=== PATIENT | male | born 1950 | race Caucasian/White ===

== ENCOUNTER → 2016-10-14 | Outpatient (CLI) | payer BC ==
[~2016-10-14] MED LIST: ACET-749 PO; CYCL10TA6 PO; IBUP-103 PO; PANT20TA PO; ZNTT/150 PO
== END | disposition home or self-care (01) ==
LOC: C.LABSPEC 16:51
PROVIDERS: ATTEND Internal Medicine Pulmonary Disease
DX: D86.9 Sarcoidosis, unspecified (principal)

== ENCOUNTER → 2016-11-21 | Outpatient (CLI) | payer BC ==
[~2016-11-21] MED LIST changes: +NRN/300 PO; -PANT20TA PO; +PANT20TA2 PO
--- NOTE | 2016-11-21 12:38 | DIAGNOSTIC IMAGING REPORT ---
KUB CLINICAL HISTORY: Nephrolithiasis. FINDINGS: 2 AP supine abdominal radiographs are compared to study dated 05/17/2015 and correlated with abdominal CT dated 11/08/2014. There is a nonobstructed abdominal bowel gas pattern noting moderate colonic fecal retention. There is no radiographic evidence of nephrolithiasis. The skeletal structures are osteopenic. There is lumbosacral spondylosis and scoliosis. The bony pelvis appears intact. IMPRESSION: There is no radiographic evidence of nephrolithiasis. Electronically signed by: Jesus Mccoy M.D. 11/21/2016 12:37 PM Dictated Date/Time: 11/21/2016 12:36 PM
== END | disposition home or self-care (01) ==
LOC: C.RAD 11:21
PROVIDERS: ATTEND Urology
DX: N20.0 Calculus of kidney (principal)

== ENCOUNTER → 2017-04-23 | Outpatient (CLI) | payer BC ==
[~2017-04-23] MED LIST changes: -ACET-749 PO; -NRN/300 PO; +PANT20TA PO; -PANT20TA2 PO; -ZNTT/150 PO
[2017-04-23 09:42] LABS: BASO % 0.9 %; BASO ABS # 0.04 K/uL (0-0.2); COMPLETE YES; EOS % 8.5 %; HEMATOCRIT 45.8 % (42-52); LYMPH % 22.8 %; LYMPH ABS # 0.99 K/uL (1.2-3.4); MEAN CELL VOLUME 92.7 fL (80-100); MEAN CORPUSCULAR HEMOGLOBIN 31.2 pg (25-34); MEAN CORPUSCULAR HGB CONC 33.6 g/dl (32-36); MONO % 10.3 %; NEUT % 57.5 %; PLATELET COUNT 184 K/uL (130-400); RED BLOOD COUNT 4.94 M/uL (4.7-6.1); WHITE BLOOD COUNT 4.35 K/uL (4.8-10.8)
[2017-04-23 10:17] LABS: ALT/SGPT 27 U/L (12-78); AST/SGOT 19 U/L (15-37); BLOOD UREA NITROGEN 19 mg/dl (7-18); BUN/CREATININE RATIO 19.2 (10-20); CALCIUM 8.5 mg/dl (8.5-10.1); CARBON DIOXIDE 30 mmol/L (21-32); CHLORIDE 105 mmol/L (98-107); GLUCOSE 94 mg/dl (70-99); POTASSIUM 4.2 mmol/L (3.5-5.1); SODIUM 139 mmol/L (136-145)
[2017-04-23 10:22] LABS: ALB/GLOB RATIO 1.2 (0.9-2); ALKALINE PHOSPHATASE 92 U/L (45-117); CHOLESTEROL 170 mg/dl (0-200); CHOLESTEROL/HDL RATIO 4.7; HDL CHOLESTEROL 36 mg/dl; LDL CHOLESTEROL CALCULATED 116 mg/dl; PROSTATE SPECIFIC ANTIGEN 0.823 ng/ml (0.000-4.000); TRIGLYCERIDES 89 mg/dl (0-150); VERY LOW DENSITY LIPOPROT CALC 18 mg/dl
--- NOTE | 2017-05-02 12:13 | CODING QUERY MEDICAL NECESSITY ---
CQSUPPORTING DIAGNOSIS NEEDED A supporting diagnosis is required for the test/procedure performed on this patient in order for us to be reimbursed by the patient's insurance. Please provide a supporting diagnosis for the following test/procedure listed below next to the test name along with your signature. *If there is no additional diagnosis for this patient that would support the following test/procedure please document that below next to the test/procedure. Test(s)/Procedure(s) that require a supporting diagnosis: DOS 04/23/17 PROSTATE SPECIFIC (PSA) TEST Provider Signature: Date: Thank you Judy Diaz Health Information Management Once completed, please kindly fax back to [phone] For questions please call [phone]
== END | disposition home or self-care (01) ==
LOC: C.LAB1850 08:19
PROVIDERS: ATTEND Internal Medicine Pulmonary Disease
DX: Z00.00 Encounter for general adult medical examination without abnormal findings (principal); M51.36 Other intervertebral disc degeneration, lumbar region; N20.0 Calculus of kidney; K21.9 Gastro-esophageal reflux disease without esophagitis

== ENCOUNTER → 2017-07-29 | Outpatient (CLI) | payer BC ==
[~2017-07-29] MED LIST changes: -CYCL10TA6 PO; +NRN/300 PO; -PANT20TA PO; +PANT20TA2 PO
--- NOTE | 2017-07-29 10:37 | DIAGNOSTIC IMAGING REPORT ---
L HIP UNILATERAL 2 VIEWS HISTORY: 66 years-old Male HIP chronic left hip pain COMPARISON: CT abdomen and pelvis 11/08/2014 TECHNIQUE: AP and frog-leg views of the left hip FINDINGS: Moderate left hip osteoarthritis. No acute fracture or dislocation. No opaque foreign body. Soft tissues are unremarkable. IMPRESSION: Moderate left and posterior arthritis without fracture. The above report was generated using voice recognition software. It may contain grammatical, syntax or spelling errors. Electronically signed by: Dl Childress M.D. 07/29/2017 10:35 AM Dictated Date/Time: 07/29/2017 10:34 AM
== END | disposition home or self-care (01) ==
LOC: C.RADBC 10:17
PROVIDERS: ATTEND Physician Assistant
DX: M16.12 Unilateral primary osteoarthritis, left hip (principal)

== ENCOUNTER → 2017-10-14 | Outpatient (CLI) | payer BC ==
[~2017-10-14] MED LIST changes: +GABA-113 PO; -NRN/300 PO
--- NOTE | 2017-10-14 12:34 | DIAGNOSTIC IMAGING REPORT ---
LEG LENGTH STUDY (WHOLE LEG) CLINICAL HISTORY: LEG LENGTH DISCREPANCY COMPARISON STUDY: No previous studies for comparison. FINDINGS: When measuring from the superior aspect of the femoral heads to the tibial plafonds, the right leg measures 91.4 cm and the left leg measures 91 cm. No suspicious osseous lesions are present. There is mild joint space narrowing with moderate osteophytosis of both hips. Alignment of the knees appears anatomic. Talar domes are intact. IMPRESSION: Right leg length of 91.4 cm and left leg length of 91 cm. Electronically signed by: Arturo Flower M.D. 10/14/2017 12:33 PM Dictated Date/Time: 10/14/2017 12:31 PM
== END | disposition home or self-care (01) ==
LOC: C.RADBC 10:37
PROVIDERS: ATTEND Physician Assistant
DX: M21.70 Unequal limb length (acquired), unspecified site (principal)